=== PATIENT | female | born 1970 | race Caucasian/White ===

== ENCOUNTER → 2017-02-23 | Day surgery (SDC) | payer BC, OTHER ==
[~2017-02-23] MED LIST: ACETAMINOPHEN 1000 MG/100 ML VIAL IV ONE; BUPIVACAINE HCL PF 0.5% 30 ML VIAL ONE; BUPIVACAINE/EPINEPHRINE 0.5% PF 30 ML VIAL ONE; CYCL-36 PO; HYDR-3533 PO; KETOROLAC TROMETHAMINE 30 MG/ML (IVP) VIAL IV PUSH ONE; LACTATED RINGER'S 1000 ML INJ 1,000 ML ONE; LEXA20TA PO; MEPERIDINE HCL 25 MG/ML VIAL ONE; MIDAZOLAM HCL 2 MG/2 ML VIAL ONE; ONDANSETRON HCL 4 MG/2 ML VIAL IV PUSH ONE; PROPOFOL 200 MG/20 ML AMP IV ONE; SYNT200T PO; TOPI100 PO; ceFAZolin 2 GM PREMIX 50 ML ONE; metroNIDAZOLE 500 MG INJ 100 ML IV ONE
--- NOTE | 2017-02-23 10:55 | TN ---
cc: EDUARDO RIBEIRO MD DATE OF SURGERY 02/23/2017 PREOPERATIVE DIAGNOSIS Symptomatic cholelithiasis POSTOPERATIVE DIAGNOSIS Symptomatic cholelithiasis PROCEDURE Laparoscopic cholecystectomy SURGEON Eduardo Ribeiro [employer] Staff ANESTHESIA General endotracheal anesthesia SPECIMENS Gallbladder and contents ESTIMATED BLOOD LOSS 5 cc COMPLICATIONS No apparent complications OPERATIVE FINDINGS The patient had chronic omental adhesions and some chronic thickening of portions of the gallbladder. There were multiple stones present. PROCEDURE IN DETAIL The patient was taken to the operating room and placed in the supine position. General endotracheal anesthesia was induced. The abdomen was prepped and draped in the usual sterile fashion. A surgical time-out was performed to verify correct patient, procedure and site. Appropriate perioperative antibiotics were administered. Local anesthetic was injected in the skin and subcutaneous tissue superior to the umbilicus and a 5 mm incision was made. Using the OptiView trocar, direct entry technique was used to gain entry to the abdomen which was insufflated to 15 mmHg with CO2 gas which the patient tolerated well. She was placed in an appropriate position and a 12 mm port placed in the epigastrium, a 5 mm in the low right upper quadrant and a 5 mm in the right lateral abdomen. Attention was turned to the gallbladder and the gallbladder was covered with some chronic omental adhesions. These were carefully taken down using electrocautery. The dome of the gallbladder was grasped and retracted cephalad and the infundibulum retracted laterally. A careful judicious use of electrocautery was used to expose the cystic artery and cystic duct. The cystic artery was actually coursing anteriorly to the cystic duct. It was dissected first, clipped twice proximally, once distally and divided. There was some chronic thickening of the more proximal portion of the gallbladder. Careful further dissection revealed the course of the cystic duct directly entering the gallbladder. It was clipped twice proximally, once distally and divided. The gallbladder was then removed from the liver bed using electrocautery. The gallbladder was removed from the abdomen using an EndoCatch bag. The cystic duct and artery stumps were visualized. There was no leakage of bile or no bleeding. The abdomen was then allowed to desufflate and trocars removed. The fascia at the 12-mm incision was closed with 0 Vicryl suture. The patient's skin was closed with subcuticular 4-0 Monocryl and Dermabond. The patient tolerated procedure well, was extubated and taken to PACU in stable condition. MD ROCIO Batista/JEFRY /10:37 AM /10:46 AM
== END | disposition home or self-care (01) ==
LOC: ESDC 08:01
PROVIDERS: ATTEND Surgery
DX: K80.10 Calculus of gallbladder with chronic cholecystitis without obstruction (principal); Z01.810 Encounter for preprocedural cardiovascular examination
CPT/HCPCS: 00790; 47562; 88304; 93005; J0131; J0690; J1885; J2175; J2250; J2405; J3010; J7120